=== PATIENT | male | born 1980 | race African-American/Black ===

== ENCOUNTER 2021-03-27 21:43 | Emergency (ER) | payer SELFPAY ==
[~2021-03-27] VITALS: Ht 177.8 cm; Wt 76.2 kg
[2021-03-27 21:43] VITALS: BP 114/80
[2021-03-27] MEDS ORDERED: BENZ-13 PO (22:44)
[2021-03-27] MEDS ORDERED: PSEU120T99 PO (22:44)
== END 2021-03-27 23:33 | disposition home or self-care (01) ==
LOC: ER 21:43
DX: U07.1 COVID-19 (principal); R05 Cough